=== PATIENT | female | born 1950 | race Caucasian/White ===

== ENCOUNTER 2017-10-10 12:15 | Day surgery (SDC) | payer OTHER ==
[~2017-10-10] VITALS: Ht 149.9 cm; Wt 79.8 kg
[2017-10-11] MEDS ORDERED: KEFLEX500 MG PO (12:03)
[2017-10-11] MEDS ORDERED: ULTRACET PO (12:03)
== END 2017-10-11 10:00 | disposition home or self-care (01) ==
LOC: ER 12:15 → CIR.AMB 13:00 → ER 16:01 → O/R 16:01 → SURH 16:01 → EDSTATUS 10-11 08:45 → CIR.AMB 10-11 10:00 → O/R 10-11 16:37 → SURH 10-11 16:37
DX: N13.2 Hydronephrosis with renal and ureteral calculous obstruction (principal); E11.42 Type 2 diabetes mellitus with diabetic polyneuropathy; E11.65 Type 2 diabetes mellitus with hyperglycemia; I10 Essential (primary) hypertension

== ENCOUNTER 2017-10-22 08:12 | Day surgery (SDC) | payer OTHER ==
[~2017-10-22] VITALS: Ht 152.4 cm; Wt 54.9 kg
[~2017-10-22 08:12] MED LIST: KEFLEX500 MG PO; ULTRACET PO
[2017-10-22] MEDS ORDERED: TRAMADOL HCL50 MG PO (09:55)
[2017-10-22] MEDS ORDERED: URIN D.S. TABL1 EACH PO (09:56)
== END 2017-10-22 13:00 | disposition home or self-care (01) ==
LOC: CIR.AMB 08:12
DX: N13.2 Hydronephrosis with renal and ureteral calculous obstruction (principal)